=== PATIENT | female | born 1990 | race Caucasian/White ===

== ENCOUNTER 2016-09-14 01:34 | Inpatient (IN) | payer OTHER, SELFPAY ==
[2016-09-13] MEDS: AMPICILLIN SOD 1 GM in D5W MINI-BAG PLUS 50 ML IV SCH (03:30)
[~2016-09-14] VITALS: Ht 157.5 cm; Wt 73.0 kg
[2016-09-14 03:07] LABS: MEAN CORPUSCULAR HEMOGLOBIN 27.8 pg (27.0-33.0); MEAN CORPUSCULAR HGB CONC 33.1 g/dl (32.0-36.5); MEAN CORPUSCULAR VOLUME 84.1 fl (80.0-96.0); WHITE BLOOD COUNT 15.3 K/mm3 (4.0-10.0)
[2016-09-14 04:02] LABS: HBSAG L&D NEGATIVE (NEGATIVE)
--- NOTE | 2016-09-14 05:53 | HPE ---
DATE OF ADMISSION: 09/14/2016 26-year-old (G)1 female, 34-6/7 weeks gestation by last menstrual period (LMP) consistent with nine week ultrasound, estimated date of confinement (EDC) is 10/20/2016 presents with regular contractions every 2-3 minutes throughout the day today. She has had contractions similar to this on and off for the last two weeks. She presented to [facility] on four occasions for contractions. During that time her cervix has progressively shortened on evaluation on each visit even though it has remained closed. She was transferred from [facility] this evening for contractions. COURSE: The patient's care has been at [facility]. Her care has been significant for contractions. She had polyhydramnios with an amniotic fluid index (FLIP) of 26.7 noticed on recent testing on 09/11/2016. She received nifedipine orally on one visit for contractions. She also received a dose of betamethasone on 09/13/2016 at approximately 6 p.m. PAST MEDICAL HISTORY: Noncontributory. PAST SURGICAL HISTORY: Hand and wrist surgery. SOCIAL HISTORY: The patient lives in [place]. She denies cigarettes, alcohol or drug use. Father of the baby is involved. FAMILY HISTORY: Noncontributory. ALLERGIES: AMOXICILLIN and CEPHALOSPORINS. PHYSICAL EXAMINATION: VITAL SIGNS: Blood pressure 120/78. GENERAL: She appears mildly uncomfortable. HEAD AND NECK EXAM: Normal. LUNGS: Clear. HEART: Regular rate and rhythm. ABDOMEN: Nontender, gravid. Fundal height is about 38 cm. Cervix is closed, 70% effaced. -3 station, ballotable, firm. EXTREMITIES: Nontender. LABS: Hepatitis B and C negative. HIV negative. Rubella immune. Tox screen negative. Glucose tolerance test 98. Thyroid normal. Hemoglobin 11.1g/dl. ASSESSMENT: 26-year-old (G) 1 at 34-6/7 weeks gestation with contractions. The patient is admitted for observation and monitoring. We will complete the course of steroids. No treatment for polyhydramnios at this time.
[2016-09-14 07:38] VITALS: BP 108/64
[2016-09-14] MEDS: AMPICILLIN SOD 1 GM in D5W MINI-BAG PLUS 50 ML IV SCH ×2 (09:57→15:38)
[2016-09-14 09:59] VITALS: BP 111/60
[2016-09-14 15:40] VITALS: BP 110/59
[2016-09-14] MEDS ORDERED: PRENTAB9 PO (17:19)
[2016-09-14] MEDS ORDERED: BETAMETHASONE SOLUSPAN 6MG/ML INJ 5ML (J0702) IM ONE (18:30)
== END 2016-09-14 19:50 | disposition home or self-care (01) | DRG 563 ==
LOC: M LDI 01:34
PROVIDERS: ADMIT Specialist; ATTEND Specialist
DX: O60.03 Preterm labor without delivery, third trimester (principal); O40.3XX0 Polyhydramnios, third trimester, not applicable or unspecified; Z3A.34 34 weeks gestation of pregnancy; Z88.1 Allergy status to other antibiotic agents; Z79.899 Other long term (current) drug therapy